=== PATIENT | female | born 1955 | race Caucasian/White ===

== ENCOUNTER → 2021-09-07 06:25 | Outpatient (CLI) | payer MEDICARE, BC, SELFPAY ==
[2021-09-07 17:47] LABS: SARS-CoV-2 RNA PCR Negative
== END ==
PROVIDERS: PCP Family Medicine Adolescent Medicine; Visit Provider Family Medicine Adolescent Medicine
DX: Z20.822 Contact with and (suspected) exposure to COVID-19 (principal); R05.9 Cough, unspecified
CPT/HCPCS: C9803; U0003; U0005

== ENCOUNTER 2021-10-20 10:04 | Emergency (ER) | payer MEDICARE, BC, SELFPAY ==
--- NOTE | 2021-10-20 10:13 | ED.SKABFB ---
HPI - Skin/Abscess/Foreign Bdy General Chief complaint: Wound/Laceration Stated complaint: rt arm pain/wound Time Seen by Provider: 10/20/21 10:20 Source: patient, RN notes reviewed and old records reviewed Mode of arrival: ambulatory Limitations: no limitations History of Present Illness HPI narrative: 65-year-old female who presents to [facility] with complaints of draining wound to right upper arm. Patient states she had a lesion frozen off of her right upper arm and has been having drainage from wound which is yellowish in color. 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 Patient also states that she has some pain to her right shoulder, reports she has seen Ortho previously for her shoulder discomfort. MD complaint: lesion Onset (ago): day(s) (8) Location: RUE Treatments prior to arrival: bandages and OTC topical medication Related Data Home Medications Medication Instructions Recorded Confirmed atorvastatin 20 mg tablet 20 mg PO DAILY 09/30/19 09/04/21 diclofenac sodium 75 mg 75 mg PO BID 09/30/19 09/04/21 tablet,delayed release levetiracetam 500 mg tablet 500 mg PO Q12H 09/30/19 09/04/21 biotin 5,000 mcg disintegrating 10,000 mcg PO DAILY 07/17/21 09/04/21 tablet calcium carbonate 600 mg (1,500 cap PO 07/17/21 09/04/21 mg)-vitamin D3 2,500 unit capsule cholecalciferol (vitamin D3) 50 50 mcg PO DAILY 07/17/21 09/04/21 mcg (2,000 unit) tablet divalproex 500 mg tablet,extended 500 mg PO DAILY 07/17/21 09/04/21 release 24 hr pantoprazole 40 mg tablet,delayed 40 mg PO QAM 07/17/21 09/04/21 release doxycycline hyclate 10/20/21 Allergies Allergy/AdvReac Type Severity Reaction Status Date / Time No Known Allergies Allergy Verified 09/04/21 10:38 Review of Systems Review of Systems: CONSTITUTIONAL: Denies fever, chills, or sweats. EYES: Denies visual changes, redness, or discharge. ENT: Denies rhinorrhea, congestion, sore throat, or otalgia. CARDIOVASCULAR: Denies chest pain, palpitations, or edema. RESPIRATORY: Denies cough or dyspnea. GASTROINTESTINAL: Denies abdominal pain, nausea, vomiting, or diarrhea. GENITOURINARY: Denies dysuria or hematuria. SKIN: Positive for wound to right upper arm with some yellowish drainage noted on dressing. MUSCULOSKELETAL: Denies back pain, right shoulder joint pain, or myalgia. NEUROLOGIC: Denies headache, numbness, or weakness. PSYCHIATRIC: Denies anxiety or depression. All systems reviewed & are unremarkable except as noted in HPI and below PMFSH Past Medical History Medical History Bleeding gums Calcific tendonitis of right shoulder HLD (hyperlipidemia) Right shoulder pain Seasonal allergic rhinitis Seizures Urinary frequency Vision loss Surgical History Surgical History H/O arthroscopy of left knee History of ankle surgery Right in 1989 History of arthroscopic knee surgery [address] Steve Larson History of breast biopsy 2002, 2004, [address] Pimentel and Dr[address] Adam Torres History of 1980 and 1982 History of facial surgery 1989 History of lumpectomy [address] Torres History of mandibular surgery 1989 History of splenectomy 1989 History of surgery on arm 1989 History of surgery on left wrist [address] Steve Larson Family History Family History Other Breast cancer Cancer Diabetes mellitus History of arthritis History of colon cancer History of high cholesterol History of leukemia History of lung cancer History of lung disease History of osteosarcoma History of stroke Hypertension Social History Social History (Reviewed 1
[2021-10-20 10:15] VITALS: BP 151/88; PULSE 77; RESP 16; TEMP 36.1; O2SAT 100
== END 2021-10-20 10:39 | disposition home or self-care (01) ==
PROVIDERS: Emergency Provider Registered Nurse; PCP Family Medicine Adolescent Medicine
DX: L98.9 Disorder of the skin and subcutaneous tissue, unspecified (principal); E78.5 Hyperlipidemia, unspecified; G40.909 Epilepsy, unspecified, not intractable, without status epilepticus
CPT/HCPCS: 99213; G0463